=== PATIENT | female | born 1975 | race Caucasian/White ===

== ENCOUNTER 2020-10-22 08:30 | Inpatient (IN) | payer OTHER, SELFPAY ==
[~2020-10-22] VITALS: Ht 167.6 cm; Wt 71.8 kg
--- NOTE | 2020-10-22 08:43 | NUR ---
PT BIBA FOR CP SINCE TUESDAY. PT DENIES SOB. PT WALKED TO ER IN . PT RECEIVED 1L NS, 4 MORPHINE, 4 ZOFRAN, 324 ASA [employer] SENIOR. PT CHANGED INTO GOWN, MONITORS IN PLACE. CALL LIGHT WITHIN REACH. Addendum: 10/22/20 at 0859 by [email or web address] PT BIBA FOR CP SINCE TUESDAY. PT DENIES SOB. PT WALKED TO ER IN . PT RECEIVED 1L NS, 4 MORPHINE, 4 ZOFRAN, 324 ASA MECH[employer]IC SENIOR. PT CHANGED INTO GOWN, MONITORS IN PLACE. CALL LIGHT WITHIN REACH. PT RESTLESS BUT COOPERATIVE & RESPONDS WELL TO STAFF. PT AMBULATED WITH UPRIGHT, STEADY GAIT FROM ACCOMPANIED BY EMS ON ARRIVAL. HEPARIN DRIP D/C'D BY EMS, AWAITING ANTI-XA RESULT.
[2020-10-22] MEDS ORDERED: PLEASE ENTER ALLERGIES MC SCH (09:00)
[2020-10-22] MEDS ORDERED: HEPARIN 25,000 UNITS/250ML PMX 250 ML IV PRN (09:00)
[2020-10-22] MEDS ORDERED: PLEASE ENTER HEIGHT AND WEIGHT MC SCH (09:00)
[2020-10-22 09:16] LABS: TROPONIN I 0.464 ng/mL (0.000-0.045)
[2020-10-22] MEDS ORDERED: HEPARIN 25,000 UNITS/250ML PMX 250 ML ONE (09:29)
[2020-10-22] MEDS ORDERED: HEPARIN 5,000 UNITS/ML, 1ML IV ONE (09:30)
[2020-10-22] MEDS ORDERED: LORazepam 2 MG/ML, 1ML ONE (09:42)
[2020-10-22] MEDS: HEPARIN 5,000 UNITS/ML, 1ML IV PRN (09:47)
--- NOTE | 2020-10-22 09:47 | NUR ---
HEPARIN BOLUS HELD PER MD, SINCE PT RECEIVED BOLUS [employer] B[employer]
--- NOTE | 2020-10-22 09:58 | NUR ---
PT SITTING ON GURNEY, WATCHING TV. NADN/VSS. COMFORT MEASURES PROVIDED
[2020-10-22] MEDS ORDERED: SODIUM CHLORIDE FLUSH 10ML SYR IVF ONE (10:00)
[2020-10-22] MEDS ORDERED: LORazepam 2 MG/ML, 1ML IVPush ONE (10:00)
--- NOTE | 2020-10-22 10:09 | NUR ---
Pt to be admitted to CARDIAC TELE, room 509-2. Report called to KARON.
[2020-10-22 10:29] VITALS: BP 136/85
[2020-10-22] MEDS ORDERED: NITROGLYCERIN 0.4 MG BOTTLE (25 TABS) SL PRN (10:30)
[2020-10-22] MEDS ORDERED: ENOXAPARIN 40 MG/0.4 ML SQ SCH (10:30)
[2020-10-22] MEDS ORDERED: ACETAMINOPHEN 325 MG TABLET PO PRN (10:30)
[2020-10-22] MEDS ORDERED: NITROGLYCERIN 0.4 MG/SPRAY SL PRN (10:30)
[2020-10-22] MEDS ORDERED: ONDANSETRON 2MG/ML, 2ML IVPush PRN (10:30)
[2020-10-22 11:10] LABS: TROPONIN I 0.533 ng/mL (0.000-0.045)
[2020-10-22 13:03] VITALS: BP 149/92
[2020-10-22 17:05] LABS: TROPONIN I 0.755 ng/mL (0.000-0.045)
[2020-10-22 20:35] VITALS: BP 140/90
[2020-10-22] MEDS: MORPHINE SULFATE 4 MG/ML, 1ML IVPush PRN (23:43)
[2020-10-23 02:23] VITALS: BP 119/80
[2020-10-23 05:24] LABS: BASOPHILS % (AUTO) 1 % (0-1); EOSINOPHILS % (AUTO) 2 % (1-7); LYMPHOCYTES % (AUTO) 30 % (22-44); MEAN CORPUSCULAR HEMOGLOBIN 32.2 pg (27.0-34.8); MEAN CORPUSCULAR HGB CONC 33.7 g/dL (32.4-35.8); MEAN PLATELET VOLUME 7.7 fL (7.4-10.4); MONOCYTES % (AUTO) 9 % (2-9); NEUTROPHILS % (AUTO) 59 % (42-75); PLATELET COUNT 210 x10^3/uL (130-400); RED BLOOD COUNT 4.37 x10^6/uL (3.82-5.3); RED CELL DISTRIBUTION WIDTH 13.4 % (9.6-15.2)
[2020-10-23] MEDS: ASPIRIN 325 MG TABLET PO SCH (05:26)
[2020-10-23 05:28] LABS: MD NO
[2020-10-23 05:31] LABS: CHLORIDE 108 mmol/L (98-107)
[2020-10-23 05:39] LABS: ALANINE AMINOTRANSFERASE 18 U/L (12-78); ALBUMIN 3.2 g/dL (3.4-5.0); ALKALINE PHOSPHATASE 56 U/L (45-117); ANION GAP 3 mmol/L (5-15); BILIRUBIN,TOTAL 0.4 mg/dL (0.2-1.0); CALCIUM 7.7 mg/dL (8.5-10.1); CHOL/HDL RATIO 2.4; CHOLESTEROL, TOTAL 143 mg/dL (140-239); CREATININE 0.71 mg/dL (0.55-1.02); HDL CHOL % 41 % (28-40); HDL CHOLESTEROL (DIRECT) 59 mg/dL (40-60); LDL CHOLESTEROL,CALCULATED 73 mg/dL (54-169); LDL/HDL RATIO 1.2 (0.5-3.0); TOTAL PROTEIN 6.6 g/dL (6.4-8.2); TRIGLYCERIDES 54 mg/dL (50-200); VLDL CHOLESTEROL 11 mg/dL (0-25)
[2020-10-23] MEDS: HEPARIN 5,000 UNITS/ML, 1ML IV PRN (05:49)
[2020-10-23] MEDS: PANTOPRAZOLE 40MG TABLET PO SCH (05:49)
[2020-10-23 07:41] VITALS: BP 131/86
[2020-10-23] MEDS: MORPHINE SULFATE 4 MG/ML, 1ML IVPush PRN ×2 (10:45→21:48)
[2020-10-23 13:15] VITALS: BP 114/74
[2020-10-23] MEDS: METOPROLOL TARTRATE 25 MG TAB PO SCH (18:30)
[2020-10-23 19:58] VITALS: BP 138/91
[2020-10-23] MEDS ORDERED: ATORVASTATIN 80 MG TABLET PO SCH (21:00)
[2020-10-24 00:28] VITALS: BP 129/86
[2020-10-24 05:05] LABS: TROPONIN I 0.744 ng/mL (0.000-0.045)
[2020-10-24] MEDS: ASPIRIN 325 MG TABLET PO SCH (06:16)
[2020-10-24] MEDS: MORPHINE SULFATE 4 MG/ML, 1ML IVPush PRN ×2 (06:16→10:19)
[2020-10-24] MEDS: METOPROLOL TARTRATE 25 MG TAB PO SCH (06:23)
[2020-10-24] MEDS: HEPARIN 5,000 UNITS/ML, 1ML IV PRN (06:41)
[2020-10-24 08:28] VITALS: BP 117/84
[2020-10-24] MEDS ORDERED: ISOSORBIDE MONONITRATE ER 30 MG TABLET PO SCH (09:00)
[2020-10-24] MEDS: PANTOPRAZOLE 40MG TABLET PO SCH (09:27)
[2020-10-24] MEDS ORDERED: METO25TA35 PO (10:24)
[2020-10-24] MEDS ORDERED: ATOR-2 PO (10:24)
[2020-10-24] MEDS ORDERED: ASPI325T17 PO (10:24)
[2020-10-24] MEDS ORDERED: ONDANSETRON ODT 4 MG PO ONE (12:30)
[2020-10-24] MEDS ORDERED: PAROXETINE 10 MG TABLET PO ONE (12:30)
[2020-10-24] MEDS ORDERED: OLANZAPINE 2.5 MG TABLET PO ONE (12:30)
[2020-10-24] MEDS ORDERED: OLANZAPINE 5 MG TABLET ONE (12:35)
[2020-10-24] MEDS ORDERED: OLAN5TAB9 PO (13:12)
[2020-10-24] MEDS ORDERED: PARO10TA3 PO (13:12)
== END 2020-10-24 13:25 | disposition home or self-care (01) | DRG 281 ==
LOC: ED 08:55 → OBSVTOIN 09:24 → 5SO 09:24 → INTOOBSV 09:24 → SUATTDRO 09:28 → 5SO 10:21 → ED 11:12 → DCLOUNGE 10-24 13:09
PROVIDERS: ADMIT Internal Medicine; ATTEND Internal Medicine
DX: I21.4 Non-ST elevation (NSTEMI) myocardial infarction (principal); F19.20 Other psychoactive substance dependence, uncomplicated; I27.20 Pulmonary hypertension, unspecified; I77.810 Thoracic aortic ectasia; J45.909 Unspecified asthma, uncomplicated; F53.0 Postpartum depression; R03.0 Elevated blood-pressure reading, without diagnosis of hypertension; F12.90 Cannabis use, unspecified, uncomplicated; F15.90 Other stimulant use, unspecified, uncomplicated; F31.9 Bipolar disorder, unspecified; F41.9 Anxiety disorder, unspecified; G43.909 Migraine, unspecified, not intractable, without status migrainosus; Z90.710 Acquired absence of both cervix and uterus; Z91.19 Patient's noncompliance with other medical treatment and regimen; Z90.722 Acquired absence of ovaries, bilateral; Z98.51 Tubal ligation status; Z79.899 Other long term (current) drug therapy; Z79.891 Long term (current) use of opiate analgesic; Z79.01 Long term (current) use of anticoagulants; Z88.8 Allergy status to other drugs, medicaments and biological substances; Z82.5 Family history of asthma and other chronic lower respiratory diseases; F17.200 Nicotine dependence, unspecified, uncomplicated; I25.110 Atherosclerotic heart disease of native coronary artery with unstable angina pectoris
CPT/HCPCS: 36415; 80053; 80061; 83735; 84100; 84443; 84484; 85025; 85520; 93005; 93306; 96374; 96375; G0378; J1644; J1650; Q0162; J2060; J2270